=== PATIENT | male | born 1985 | race African-American/Black ===

== ENCOUNTER 2017-07-24 09:26 | Emergency (ER) | payer OTHER ==
[~2017-07-24] VITALS: Ht 170.2 cm; Wt 84.1 kg
[2017-07-24] MEDS ORDERED: LEVE250T55 PO (09:31)
[2017-07-24 09:52] LABS: GLUCOSE,POINT OF CARE 108 MG/DL (70-110)
[2017-07-24 11:50] LABS: AMPHET/METH SCREEN,URINE NEGATIVE (NEGATIVE); BARBITURATE SCREEN, URINE NEGATIVE (NEGATIVE); BENZODIAZEPINES SCREEN,URINE NEGATIVE (NEGATIVE); CANNABINOID SCREEN,URINE POSITIVE (NEGATIVE); COCAINE SCREEN,URINE POSITIVE (NEGATIVE); METHADONE SCREEN, URINE NEGATIVE (NEGATIVE); OPIATE SCREEN,URINE NEGATIVE (NEGATIVE)
[2017-07-24 11:51] LABS: PHENCYCLIDINE SCREEN,URINE NEGATIVE (NEGATIVE)
[2017-07-24] MEDS ORDERED: LevETIRAcetam 500 MG TABLET PO ONE (12:00)
[2017-07-24 12:16] LABS: EOSINOPHILS % (AUTO) 0 % (1.0-6.0); HEMOGLOBIN 15.1 g/dL (13.5-17.5); LYMPHOCYTES # (AUTO) 0.5 K/uL (1.0-4.8); LYMPHOCYTES % (AUTO) 4.7 % (22.0-44.0); MEAN CORPUSCULAR HGB CONC 32.9 G/dL (31.0-37.0); MEAN CORPUSCULAR VOLUME 82 fL (80-100); MONOCYTES # (AUTO) 0.4 K/uL (0.1-1.0); MONOCYTES % (AUTO) 3.6 % (2.0-9.0); NEUTROPHILS # (AUTO) 9.9 K/uL (1.8-7.7); RED BLOOD CELL COUNT(AUTO) 5.59 MIL/uL (4.50-5.90)
[2017-07-24 12:22] LABS: NEUTROPHILS % (AUTO) 91.7 % (40.0-70.0)
[2017-07-24 12:27] LABS: ANION GAP 8 mmol/L (8-16); CALCIUM, TOTAL 9.9 mg/dL (8.8-10.5); CARBON DIOXIDE 25 mmol/L (22-29); CHLORIDE 108 mmol/L (98-107); CREATININE 1.05 mg/dL (0.60-1.30); GLOMERULAR FILTR. RATE CALC > 60 mL/min (>60); GLUCOSE,RANDOM 87 mg/dL (70-110); POTASSIUM 5.2 mmol/L (3.5-5.1); SODIUM SERUM 141 mmol/L (136-145); UREA NITROGEN, BLOOD 13 mg/dL (7-18)
[2017-07-24] MEDS ORDERED: PHEN100C23 PO (12:32)
[2017-07-24] MEDS ORDERED: CARB200T6 PO (12:32)
[2017-07-24] MEDS ORDERED: DIVA250T45 PO (12:32)
[2017-07-24 12:51] LABS: CREATINE KINASE MB < 0.5 ng/mL (0-5); CREATINE KINASE, TOTAL 300 U/L (39-308)
[2017-07-24 13:26] LABS: PLATELET COUNT (AUTO) 93 K/uL (150-450)
[2017-07-24 14:30] VITALS: BP 115/51
[2017-07-24] MEDS ORDERED: TraMADol HCL 50 MG TABLET PO ONE (14:45)
== END 2017-07-24 14:52 | disposition home or self-care (01) ==
LOC: EDBD 09:29 → EMS 09:29
DX: F14.10 Cocaine abuse, uncomplicated (principal); G40.909 Epilepsy, unspecified, not intractable, without status epilepticus
CPT/HCPCS: 82962; 99284